=== PATIENT | male | born 1950 | race Caucasian/White ===

== ENCOUNTER 2021-11-12 13:08 | Outpatient (CLI) | payer MEDICARE | END 2021-11-12 13:09 | disposition home or self-care (01) | LOC: CSHCT 13:08 | PROVIDERS: ATTEND Nurse Practitioner Women's Health | DX: R51.9 Headache, unspecified (principal) | CPT/HCPCS: 70450 ==

== ENCOUNTER 2022-12-26 07:01 | Day surgery (SDC) | payer MEDICARE ==
[2022-12-24 10:36] VITALS: BMI 40.8
[2022-12-26] MEDS ORDERED: PROPOFOL 20 ML ONE ×2 (09:03)
[2022-12-26] MEDS ORDERED: Lidocaine 1% PF 5 ML VIAL ONE (09:05)
== END 2022-12-26 10:25 | disposition home or self-care (01) ==
LOC: CSHSDC 07:01
PROVIDERS: ATTEND Internal Medicine Gastroenterology
PROC: 0DBK8ZZ Excision of Ascending Colon, Via Natural or Artificial Opening Endoscopic (ICD-10-PCS; principal; 2022-12-26)
DX: K63.5 Polyp of colon (principal); E66.9 Obesity, unspecified; K63.89 Other specified diseases of intestine; K57.30 Diverticulosis of large intestine without perforation or abscess without bleeding; M19.90 Unspecified osteoarthritis, unspecified site; E11.9 Type 2 diabetes mellitus without complications; Z90.49 Acquired absence of other specified parts of digestive tract; Z90.89 Acquired absence of other organs; K64.9 Unspecified hemorrhoids; Z88.2 Allergy status to sulfonamides; Z79.899 Other long term (current) drug therapy; Z68.41 Body mass index [BMI] 40.0-44.9, adult
CPT/HCPCS: 88305; J2704